=== PATIENT | male | born 1970 | race African-American/Black ===

== ENCOUNTER 2016-11-20 09:49 | Emergency (ER) | payer MEDICAID ==
[~2016-11-20] VITALS: Ht 170.2 cm; Wt 83.9 kg
[2016-11-20 10:05] VITALS: BP 156/96
[2016-11-20] MEDS ORDERED: high blood pressure (10:11)
--- NOTE | 2016-11-20 10:51 | Emergency Room Report ---
History of Present Illness General Chief Complaint: General Complaint Source: Patient Present Illness HPI Patient presents with several complaints. 1. As a bump in his left side of his chest anteriorly. He just noticed it several days ago. He states it's painful. Never noticed it before. There's been no redness of the skin. He denies any fevers or chills. Pain 8/10, not radiate. 2. He needs medication for his blood pressure. At this time he hasn't noted medication name is. He's recently moved from [place]. He denies any headache. He does complain about some pain in his kidneys. He states that when he saw previous nurse they recommended that he have test for hepatitis. 3. The patient states that he has a rash on his penis. He states it's nontender. He states he's been tested for syphilis and gonorrhea and treated. This was several months ago. He still has problems of a rash. He denies any pain or blisters. 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 Past Medical History: No History, Except For Hx Hypertension: Yes Review of Systems All Other Systems: negative except mentioned in HPI Physical Exam Vital Signs Date Time Temp Pulse Resp B/P Pulse Ox O2 Delivery O2 Flow Rate FiO2 11/20/16 10:05 97.3 53 16 156/96 100 Room Air Sp02 EP Interpretation: reviewed, normal General Appearance: well appearing, no apparent distress Head: normocephalic, atraumatic Eyes: bilateral eye PERRL, bilateral eye normal inspection ENT: hearing grossly normal, normal voice Neck: full range of motion, supple Respiratory: normal breath sounds, no rhonchi, other - hard nodule L costo- sternal boarder = 1.5 cm diameter, not mobile and hard (bone or caretlage) Cardiovascular #1: regular rate, rhythm Gastrointestinal: normal bowel sounds, non tender, soft Genitourinary: other - uncircumcized, sl crusting (not eschar), also slight pinkish tissue, no vesicles Musculoskeletal: digits/nails normal, gait/station normal, normal range of motion, no calf tenderness Neurologic: alert, normal gait, grossly normal Psychiatric: mood/affect normal Skin: normal color, warm/dry, other - see genitalia Medical Decision Making Diagnostic Impression: Primary Impression: Subcutaneous nodule Additional Impressions: Hypertension Qualified Codes: I10 - Essential (primary) hypertension Penile rash ER Course Patient with 3 problems. Blood pressure refill not need labs at this point. Contacted [place] pharmacy. Chest lesion local. Nodularity between sternum and rib. Ddx: SC fibrosis, bony exostosis, infection. This may require biopsy in the future, but does not appear infctious or like tumor. Rash on penis looks sub-acute. Alleged prior w/u for STD. At this point needs local topical care. Patient stable for outpatient observation and treatment. Last Vital Signs Date Time Temp Pulse Resp B/P Pulse Ox O2 Delivery O2 Flow Rate FiO2 11/20/16 11:24 60 14 148/78 98 Room Air 11/20/16 11:24 97.3 Status: improved Disposition: HOME, SELF-CARE Condition: Stable Scripts Bacitracin (Bacitracin) 28.4 Gm Oint...g. 1 APPLIC TOPIC BID, #20 GM Prov: Herb Lockwood M.D. 11/20/16 Lisinopril (LISINOPRIL*) 20 Mg Tablet 20 MG ORAL DAILY, #14 TAB Prov: Herb Lockwood M.D. 11/20/16 Ibuprofen* (MOTRIN*) 600 Mg Tablet 600 MG ORAL Q6H Y for For Pain, #20 TAB Prov: Herb Lockwood M.D. 11/20/16 Referrals: NOT CHOSEN INDIRA/,REFERRING (PCP) Herb Lockwood M.D. Nov 20, 2016 10:51
[2016-11-20] MEDS ORDERED: LISINOPRIL20 MG ORAL (10:53)
[2016-11-20] MEDS ORDERED: IBUPROFEN600 MG ORAL (10:53)
[2016-11-20] MEDS ORDERED: BACITRACIN15 GM TOPIC (10:58)
[2016-11-20 11:24] VITALS: BP 148/78
== END 2016-11-20 11:26 | disposition home or self-care (01) ==
LOC: EMR 10:25
DX: R22.2 Localized swelling, mass and lump, trunk (principal); I10 Essential (primary) hypertension; R21 Rash and other nonspecific skin eruption; Z87.891 Personal history of nicotine dependence
CPT/HCPCS: 99284